=== PATIENT | male | born 1950 | race Caucasian/White ===

== ENCOUNTER 2017-02-10 13:10 | Observation (INO) | payer OTHER, BC ==
[2017-02-10] MEDS ORDERED: METOCLOPRAMIDE 10 MG/2 ML VIAL IVP ONE (13:49)
[2017-02-10] MEDS ORDERED: DIAZEPAM 10 MG/2 ML SYR IVP ONE (13:50)
--- NOTE | 2017-02-10 13:53 | EDPHY ---
H & P Stated Complaint: migraine Time Seen by Provider: 02/10/17 13:40 HPI/ROS: CHIEF COMPLAINT: Headache HISTORY OF PRESENT ILLNESS: The patient is a 67-year-old man with a history of migraines who over the last 2 weeks has had migraines daily and more severe than usual. He was admitted to [facility] 2 weeks ago and had a negative CT scan. They felt that his hand migraines were due to rebound from the Imitrex and caffeine. He was counseled to get off these medications. He tried to stop using them yesterday. Today he woke up with the worst headache he has ever had at 5:00 a.m.. He did try taking Vicodin and a dose of Imitrex with no improvement. His called 911. He was given 150 mcg of fentanyl by EMS with minimal improvement. He denies any focal weakness numbness or deficits. No vision changes. He is photophobic. Nausea but no vomiting. No fever. No trauma. No neck pain. REVIEW OF SYSTEMS: Constitutional: denies: chills, fever, recent illness, recent injury EENTM: denies: blurred vision, double vision, nose congestion Respiratory: denies: cough, shortness of breath Cardiac: denies: chest pain, irregular heart rate, lightheadedness, palpitations Gastrointestinal/Abdominal: denies: abdominal pain, diarrhea, nausea, vomiting, blood streaked stools Genitourinary: denies: dysuria, frequency, hematuria, pain Musculoskeletal: denies: joint pain, muscle pain Skin: denies: lesions, rash, jaundice, bruising Neurological: See HPI denies: numbness, paresthesia, tingling, dizziness, weakness Hematologic/Lymphatic: denies: blood clots, easy bleeding, easy bruising Immunologic/allergic: denies: HIV/AIDS, transplant EXAM: GENERAL: Writhing in bed, holding head. Covering eyes.. HEAD: Atraumatic, normocephalic. EYES: Pupils equal round and reactive to light, extraocular movements intact, sclera anicteric, conjunctiva are normal. ENT: TMs normal, nares patent, oropharynx clear without exudates. Moist mucous membranes. NECK: Normal range of motion, supple without lymphadenopathy or JVD. LUNGS: Breath sounds clear to auscultation bilaterally and equal. No wheezes rales or rhonchi. HEART: Regular rate and rhythm without murmurs, rubs or gallops. ABDOMEN: Soft, nontender, normoactive bowel sounds. No guarding, no rebound. No masses appreciated. BACK: No CVA tenderness, no spinal tenderness, step-offs or deformities EXTREMITIES: Normal range of motion, no pitting or edema. No clubbing or cyanosis. NEUROLOGICAL: Cranial nerves II through XII grossly intact. Normal speech, normal gait. 5/5 strength, normal movement in all extremities, normal sensation PSYCH: Normal mood, normal affect. SKIN: Warm, dry, normal turgor, no visible rashes or lesions. Source: Patient Exam Limitations: No limitations - Personal History Current Tetanus Diphtheria and Acellular Pertussis (TDAP): Yes - Medical/Surgical History Hx Asthma: No Hx Chronic Respiratory Disease: No Hx Diabetes: No Hx Cardiac Disease: No Hx Renal Disease: No Hx Cirrhosis: No Hx Alcoholism: No Hx HIV/AIDS: No Hx Splenectomy or Spleen Trauma: No Other PMH: migraine - Family History Significant Family History: No pertinent family hx - Social History Smoking Status: Never smoked Alcohol Use: Sober Drug Use: None Constitutional: Initial Vital Signs Temperature (C) 36.9 C 02/10/17 13:20 Heart Rate 77 02/10/17 13:20 Respiratory Rate 16 02/10/17 13:20 Blood Pressure 145/74 H 02/10/17 13:20 O2 Sat (%) 97 02/10/17 13:20 O2 Delivery Mode Nasal Cannula O2 (L/minute) 4 Allergies/Adverse Reactions: No Known Drug Allergies Allergy (Verified 02/10/17 16:21) Home Medications: Medication Instructions Recorded Diltiazem HCl [Cartia Xt] 120 mg PO DAILY 02/10/17 Gabapentin [Neurontin 300 MG (*)] 600 mg PO BID 02/10/17 Hydrochlorothiazide [HCTZ (*)] 25 mg PO DAILY 02/10/17 Hydrocodone/APAP 5/325 [[place] 1 - 2 tab PO Q4H 02/10/17 5/325 (*)] Naproxen Sodium [Aleve 220 MG (*)] 220 mg PO BID 02/10/17 Sumatriptan Succinate [Imitrex] 100 mg PO AD 02/10/17 amLODIPine BESYLATE [Norvasc 2.5 2.5 mg PO DAILY 02/10/17 mg (*)] traMADol [Ultram 50 mg (*)] 50 - 100 mg PO Q4 PRN 02/10/17 Medical Decision Making - Diagnostics Imaging Results: Imaging Impressions Brain MRI 02/10/17 13:48 Impression: 1. Mild age-related cerebral atrophy. 2. A few nonspecific hyperintense T2/FLAIR signal abnormalities in the white matter of frontal lobes. Differential diagnosis includes microvascular ischemic disease, post-infectious/post-inflammatory sequela, atypical demyelinating disease, or migraine-related sequela. 3. No acute infarct, hemorrhage, hydrocephalus, mass effect, or herniation. If symptoms worsen, additional imaging may be necessary. Findings discussed with Deshawn Fish M.D. at 15:41 hour, 02/10/2017. Head MRA 02/10/17 13:48 Impression: Normal MRA of the teller of [place] as detailed above. ED Course/Re-evaluation: 2:30 p.m. the patient is feeling significantly better but is anxious about MRI. He still has a headache. I will treat him with Haldol. 4:15 p.m. the patient states that he slept little bowel but now the headache has returned. His family is very concerned. They are relieved about the MRI results but states that they cannot handle at home because of his persistent migraine and that it is changed dramatically over the last 2 weeks. Mom and daughter her requesting admission for neurology consult and further workup. I discussed the case with Dr. Gandhi who will admit. I will consult Neurology. Family is primarily hoping to have a Neurology consult during admission. 4:30 p.m. I discussed the case with Dr. Mack who will consult during the admission. Differential Diagnosis: Partial list of the Differential diagnosis considered include but were not limited to; intractable migraine, tumor, aneurysm, dissection and although unlikely based on the history and physical exam, I also considered seizure, trauma, infection. I discussed these differential diagnoses and the plan with the patient as well as the usual and expected course. The patient understands that the diagnosis is provisional and that in medicine we are not always correct and that further workup is often warranted. Usual and customary warnings were given. All of the patient's questions were answered. The patient was instructed to return to the emergency department should the symptoms at all worsen or return, otherwise to followup with the physician as we discussed. - Data Points Medications Given: Discontinued Medications Dexamethasone (Decadron Injection) 8 mg IVP EDNOW ONE Stop: 02/10/17 16:13 Last Admin: 02/10/17 16:29 Dose: 8 mg Diazepam (Valium Injection) 5 mg IVP EDNOW ONE Stop: 02/10/17 13:51 Last Admin: 02/10/17 13:55 Dose: 5 mg Diphenhydramine HCl (Benadryl Injection) 25 mg IVP EDNOW ONE Stop: 02/10/17 13:50 Last Admin: 02/10/17 13:55 Dose: 25 mg Haloperidol Lactate (Haldol Injection) 5 mg IVP EDNOW ONE Stop: 02/10/17 14:30 Last Admin: 02/10/17 14:35 Dose: 5 mg Hydromorphone HCl (Dilaudid) 1 mg IVP EDNOW ONE Stop: 02/10/17 16:14 Last Admin: 02/10/17 16:28 Dose: 1 mg Ketorolac Tromethamine (Toradol) 15 mg IVP/IM EDNOW ONE Stop: 02/10/17 16:13 Last Admin: 02/10/17 16:29 Dose: 15 mg Lorazepam (Ativan Injection) 1 mg IVP EDNOW ONE Stop: 02/10/17 14:45 Last Admin: 02/10/17 14:50 Dose: 1 mg Metoclopramide HCl (Reglan Injection) 10 mg IVP EDNOW ONE Stop: 02/10/17 13:50 Last Admin: 02/10/17 13:55 Dose: 10 mg Departure - Departure Disposition: [facility] Acute Clinical Impression: Intractable migraine Qualifiers: Migraine type: unspecified Status migrainosus presence: with status migrainosus Qualified Code(s): G43.911 - Migraine, unspecified, intractable, with status migrainosus Condition: Fair
[2017-02-10] MEDS ORDERED: HALOPERIDOL LACT 5 MG/ML INJ IVP ONE (14:29)
[2017-02-10] MEDS ORDERED: LORazepam 2 MG/ML INJ IVP ONE (14:44)
[2017-02-10] MEDS ORDERED: KETOROLAC 15 MG/1 ML SDV IVP/IM ONE (16:12)
[2017-02-10] MEDS ORDERED: DEXAMETHASONE 4 MG/ML VIAL IVP ONE (16:12)
[2017-02-10] MEDS ORDERED: HYDROmorphONE/DILAUDID 1 MG/ML INJ IVP ONE (16:13)
[2017-02-10] MEDS ORDERED: LORazepam 2 MG/ML INJ IVP PRN (16:28)
[2017-02-10] MEDS ORDERED: ONDANSETRON DISINTEGRATING 4 MG TAB PO PRN (16:28)
[2017-02-10] MEDS ORDERED: LORazepam 0.5 MG TAB PO PRN (16:28)
[2017-02-10] MEDS ORDERED: ONDANSETRON 4 MG/2 ML VIAL IVP PRN (16:28)
[2017-02-10] MEDS ORDERED: oxyCODONE IR 5 MG TAB PO PRN (16:28)
[2017-02-10] MEDS ORDERED: ACETAMINOPHEN 325 MG TAB PO PRN (16:28)
[2017-02-10] MEDS ORDERED: SUMAtriptan 6 MG/0.5 ML VIAL SC PRN (16:31)
[2017-02-10 17:49] LABS: % IMMATURE GRANULYOCYTES 0.5 % (0.0-1.1); ABSOLUTE IMMATURE GRANULOCYTES 0.04 10^3/uL (0.00-0.10); ADD DIFF? NO; ADD MORPH? NO; ADD SCAN? NO; ATYPICAL LYMPHOCYTE FLAG 0 (0-99); FRAGMENT RBC FLAG 0 (0-99); HEMATOCRIT 39.9 % (40.0-51.0); HEMOGLOBIN 13.8 g/dL (13.7-17.5); LEFT SHIFT FLG 0 (0-99); LIPEMIA HEMOLYSIS FLAG 90 (0-99); MEAN CELL HEMOGLOBIN 31.6 pg (27.9-34.1); MEAN CELL HEMOGLOBIN CONCENTR. 34.6 g/dL (32.4-36.7); MEAN CELL VOLUME 91.3 fL (81.5-99.8); MEAN PLATELET VOLUME 10.8 fL (8.7-11.7); PLATELET CLUMPS FLAG 10 (0-99); PLATELET COUNT 104 10^3/uL (150-400); RED BLOOD CELL COUNT 4.37 10^6/uL (4.40-6.38); RED CELL DISTRIBUTION WIDTH 14.1 % (11.5-15.2)
--- NOTE | 2017-02-10 17:53 | PDGENHP ---
History and Physical - Chief Complaint REYES - History of Present Illness 67 yo male with hx of migraines, p/w acute migraine. Has been having migraines intermittently for the last 2 weeks. Was seen by a PCP in [place] who though it was likely due to rebound REYES's and modified meds. Modification of meds has not really helped. BP was also noted to be elevated and BP meds were added. He has a long hx of HTN. No neuro deficits. IN the ED he was given a REYES cocktail with resolution of REYES. He is being admitted under observation to obtain Neuro consult. He still had a REYES when the decision was made. He does not have any photophobia. He had some nausea earlier but none currently. PMHx: migraines, HTN Soc: no T/E/I FmHx: NC History Information - Allergies/Home Medication List Allergies/Adverse Reactions: No Known Drug Allergies Allergy (Verified 02/10/17 16:21) Home Medications: Diltiazem HCl [Cartia Xt] 120 mg PO DAILY 02/10/17 [Last Taken 02/10/17] Gabapentin [Neurontin 300 MG (*)] 600 mg PO BID 02/10/17 [Last Taken 02/10/17 09 :00] Hydrochlorothiazide [HCTZ (*)] 25 mg PO DAILY 02/10/17 [Last Taken 02/10/17] Hydrocodone/APAP 5/325 [[place] 5/325 (*)] 1 - 2 tab PO Q4H 02/10/17 [Last Taken 02/10/17 10:30] Naproxen Sodium [Aleve 220 MG (*)] 220 mg PO BID 02/10/17 [Last Taken 02/10/17 09:00] Sumatriptan Succinate [Imitrex] 100 mg PO AD 02/10/17 [Last Taken 02/10/17 11:30 ] amLODIPine BESYLATE [Norvasc 2.5 mg (*)] 2.5 mg PO DAILY 02/10/17 [Last Taken 09:30] traMADol [Ultram 50 mg (*)] 50 - 100 mg PO Q4 PRN 02/10/17 [Last Taken 02/10/17 10:00] I have personally reviewed and updated: family history, medical history, social history - Social History Smoking Status: Never smoked Alcohol Use: Sober Drug Use: None Review of Systems Review of Systems: ROS: 10pt was reviewed & negative except for what was stated in HPI & below Physical Exam Physical Exam: Temp Pulse Resp BP Pulse Ox 36.8 C 80 14 132/85 H 100 02/10/17 17:36 02/10/17 17:36 02/10/17 17:36 02/10/17 17:36 02/10/17 17:36 O2 (L/minute) 4 Constitutional: no apparent distress Eyes: PERRL, EOMI Ears, Nose, Mouth, Throat: moist mucous membranes, hearing normal, ears appear normal Cardiovascular: regular rate and rhythym, no murmur, rub, or gallop Respiratory: no respiratory distress, no rales or rhonchi, clear to auscultation , reduced air movement Gastrointestinal: normoactive bowel sounds, soft, non-tender abdomen Genitourinary: no bladder fullness Skin: warm, normal color Musculoskeletal: full muscle strength, No generalized weakness Neurologic: AAOx3, sensation intact bilaterally Psychiatric: interacting appropriately, not anxious, not encephalopathic, thought process linear, No encephalopathic Lab Data & Imaging Review 02/10/17 17:35 02/10/17 17:35 WBC 8.58 10^3/uL (3.80-9.50) 02/10/17 17:35 RBC 4.37 10^6/uL (4.40-6.38) L 02/10/17 17:35 Hgb 13.8 g/dL (13.7-17.5) 02/10/17 17:35 Hct 39.9 % (40.0-51.0) L 02/10/17 17:35 MCV 91.3 fL (81.5-99.8) 02/10/17 17:35 MCH 31.6 pg (27.9-34.1) 02/10/17 17:35 MCHC 34.6 g/dL (32.4-36.7) 02/10/17 17:35 RDW 14.1 % (11.5-15.2) 02/10/17 17:35 Plt Count 104 10^3/uL (150-400) L 02/10/17 17:35 MPV 10.8 fL (8.7-11.7) 02/10/17 17:35 Neut % (Auto) 89.1 % (39.3-74.2) H 02/10/17 17:35 Lymph % (Auto) 5.7 % (15.0-45.0) L 02/10/17 17:35 Garden % (Auto) 4.0 % (4.5-13.0) L 02/10/17 17:35 Eos % (Auto) 0.5 % (0.6-7.6) L 02/10/17 17:35 Baso % (Auto) 0.2 % (0.3-1.7) L 02/10/17 17:35 Nucleat RBC Rel Count 0.0 % (0.0-0.2) 02/10/17 17:35 Absolute Neuts (auto) 7.65 10^3/uL (1.70-6.50) H 02/10/17 17:35 Absolute Lymphs (auto) 0.49 10^3/uL (1.00-3.00) L 02/10/17 17:35 Absolute Monos (auto) 0.34 10^3/uL (0.30-0.80) 02/10/17 17:35 Absolute Eos (auto) 0.04 10^3/uL (0.03-0.40) 02/10/17 17:35 Absolute Basos (auto) 0.02 10^3/uL (0.02-0.10) 02/10/17 17:35 Absolute Nucleated RBC 0.00 10^3/uL (0-0.01) 02/10/17 17:35 Immature Gran % 0.5 % (0.0-1.1) 02/10/17 17:35 Immature Gran # 0.04 10^3/uL (0.00-0.10) 02/10/17 17:35 Assessment & Plan Assessment: #Intractable migraine (Acute) #HTN Plan: Admit Observation Migraine has resolved Neuro to see. They were consulted by the [facility]amsi Symptom mgmt SCD's Full code cont home meds as appropriate
[2017-02-10] MEDS ORDERED: MAG HYDROX/AL HYDROX/SIMETH 30 ML UDCUP PO PRN (18:04)
[2017-02-10 18:09] LABS: ANION GAP 7 mEq/L (8-16); CALCIUM 8.1 mg/dL (8.5-10.4); CARBON DIOXIDE 24 mEq/l (22-31); CHLORIDE 102 mEq/L (97-110); CREATININE 0.6 mg/dL (0.7-1.3); GLOMERULAR FILTRATION RATE > 60; GLUCOSE 97 mg/dL (70-100); POTASSIUM 3.7 mEq/L (3.5-5.2); SODIUM 133 mEq/L (134-144)
[2017-02-10] MEDS ORDERED: IPRATROPIUM/ALBUTEROL 3 ML DEYVIAL IH SCH (21:00)
[2017-02-10] MEDS: GABAPENTIN 300 MG CAP PO SCH (21:45)
[2017-02-11 05:07] LABS: % IMMATURE GRANULYOCYTES 0.7 % (0.0-1.1); ABSOLUTE IMMATURE GRANULOCYTES 0.05 10^3/uL (0.00-0.10); ADD DIFF? NO; ADD MORPH? NO; ADD SCAN? NO; ATYPICAL LYMPHOCYTE FLAG 0 (0-99); FRAGMENT RBC FLAG 0 (0-99); HEMATOCRIT 41.4 % (40.0-51.0); LEFT SHIFT FLG 0 (0-99); LIPEMIA HEMOLYSIS FLAG 90 (0-99); MEAN CELL HEMOGLOBIN 30.7 pg (27.9-34.1); MEAN CELL HEMOGLOBIN CONCENTR. 33.8 g/dL (32.4-36.7); MEAN CELL VOLUME 90.8 fL (81.5-99.8); MEAN PLATELET VOLUME 10.3 fL (8.7-11.7); PLATELET CLUMPS FLAG 10 (0-99); PLATELET COUNT 146 10^3/uL (150-400); RED BLOOD CELL COUNT 4.56 10^6/uL (4.40-6.38)
[2017-02-11 05:29] LABS: ANION GAP 6 mEq/L (8-16); CARBON DIOXIDE 25 mEq/l (22-31); CHLORIDE 102 mEq/L (97-110); CREATININE 0.7 mg/dL (0.7-1.3); GLOMERULAR FILTRATION RATE > 60; GLUCOSE 123 mg/dL (70-100); MAGNESIUM 1.9 mg/dL (1.6-2.3); POTASSIUM 4.7 mEq/L (3.5-5.2); SODIUM 133 mEq/L (134-144)
[2017-02-11] MEDS ORDERED: IPRATROPIUM/ALBUTEROL 3 ML DEYVIAL IH PRN (05:45)
[2017-02-11 08:16] VITALS: TEMP 97.9
[2017-02-11] MEDS ORDERED: DILTIAZEM CD 120 MG CAP PO SCH (09:00)
[2017-02-11] MEDS ORDERED: HYDROCHLOROTHIAZIDE 25 MG TAB PO SCH (09:00)
[2017-02-11] MEDS: GABAPENTIN 300 MG CAP PO SCH (09:21)
--- NOTE | 2017-02-11 10:11 | NEUROPROG ---
Assessment: HOSPITAL NEUROLOGY CONSULT REQUESTING: Ross Gandhi MD REASON: headache HPI: 67 year old right-handed man with a history of migraines, HTN, chronic low back pain after lumbar fusion who presented to our ED yesterday via EMS with a headache. Patient has a longstanding history of migraines since childhood. Typical migraines manifest as vertex throbbing with preceding visual aura and nausea, photophobia and phonophobia. They tend to occur once per month, but lately they have been increasing in frequency. He has never seen a neurologist for his headaches, but his PCP back in [place] had been prescribing sumatriptan and hydrocodone. Over the last 2-3 months, his migraines have become more frequent , occurring every 2-3 days as of the last 3-4 weeks. He has been using sumatriptan twice daily on headache days, as well as his hydrocodone. He also had been using Excedrin Migraine for these headaches. He thinks the increasing frequency is triggered by skipping meals with frequent travel. He also notes perhaps a year or so of a different headache semiology he describes as "pillow headaches." He states he wakes with posterior quadrant aching pain on most mornings. He thought this was related to his neck and poorly supportive pillows, so he changed his pillows multiple times without any improvement. His has been noticing increasing intensity and frequency of snoring with sleep, to the point where it occurs in all sleeping positions ( back and side). Headaches generally subside in a few hours. Of new concern is an even newer REYES semiology. He notes 2 weeks ago, just prior to traveling to [place], he was getting severe daily headaches involving the right hemicranial region. It tends to occur at night, sometimes in the surveillance system monitor. He finds laying in bed to be of comfort, as opposed to getting up and walking about the house. He has continued to use sumatriptan, hydrocodone and Excedrin for these headaches, now for the past 2 weeks using these medications daily. Both he and his noted his right eyelid to be drooping with these new headaches. He has experienced some nasal congestion and drainage, but can' t recall any lateralization. He established with a local PCP for evaluation and was sent to [facility] earlier this week for an emergent CT head wo, which was normal. No vascular imaging was done. ESR was drawn and was normal. He returned to his PCP on 02/09 and was told his HAs were related to medication overuse and he was told to stop using sumatriptan and hydrocodone. Yesterday he had another episode of his REYES in the daytime and summoned EMS for transport to our ED. He had an MRI brain wo in the ED which showed nothing acute, but some chronic microvascular ischemic changes in the frontal subcortical white matter. MRA head wo showed patent vessels. He was given several IV migraine abortives, which helped his REYES, but it is still present. He denies any head/neck injury,including chiropractic manipulation or whiplash type movements. No weakness, numbness, speech/language changes, dizziness, gait changes. He does have some vague nack pain with this new headache. ROS: As per the HPI, otherwise a complete 12 point ROS was performed and is negative ALLERGIES AND MEDS: As recorded in the EMR - reviewed and reconciled PFSH: As per the intake H&P by Dr. Gandhi from yesterday EXAM: VS reviewed in EMR GEN: WDWN sitting in NAD, appears comfortable eating breakfast HEENT: NCAT, sclera anicteric, conjunctiva not injected, MMM, oropharynx clear, no scalp tenderness NECK: supple, nontender, no meningismus CV: RRR s1 s2 wo m/r/c/g. Carotid pulses 2+ wo bruit NEURO: MS: awake, alert, oriented to all spheres. Speech nondysarthric. No language disturbance. Follows commands. Attends to both sides. Recent/remote memory grossly intact. Mood euthymic. Good fund of knowledge. CN: pupils 5mm round OS, 3.5mm round OD and both reactive. Fundi with sharp discs. Ptosis OD with 1mm pupillary encroachment. VFF. Primary gaze centered. Full ocular motility. Facial sensation preserved. Face symmetric. Hearing grossly intact to finger rub. Palatoglossal movements intact. Shoulder shrug and head turn strong. MOTOR: normal bulk/tone. No adventitial movements. Full power throughout. SENSORY: intact to all modalities throughout. No extinction. COORD: no ataxia FN/HS. Tico preserved. Romberg neg. REFLEX: plantars down. No clonus. DTRS 2/4. GAIT: rises unassisted. Narrow base. Intact stride length/heel strike/toe lift /arm swing. Turns with 2 steps. Able to tandem without difficulty. DATA REVIEW: Labs reviewed in EMR PERSONALLY INTERPRETED RESULTS AND DATA: MRI brain wo and MRA head wo as per the HPI IMPRESSION AND RECOMMENDATIONS: // RIGHT HEMICRANIAL HEADACHE WITH RIGHT MIOSIS/PTOSIS - RULE OUT CAROTID DISSECTION // HX MIGRAINES // DAILY MORNING HAs - SUSPECT ZAID RELATED VS CERVICOGENIC // MEDICATION OVERUSE Patient with multiple REYES issues presenting with new REYES semiology concerning for right carotid dissection vs. paroxysmal hemicrania. Will get CTA head/neck to eval for carotid dissection. Will render further recommendation pending results and final diagnosis of this new REYES. Regarding his chronic AM HAs, likely ZAID related - he has sleep eval scheduled next week. If this is unyielding, then will need cervical degeneration eval with PCP or PMR/spine. Regarding migraines, likely increasing frequency with medication overuse and skipping meals. Discussed stopping all OTC analgesics and sumatriptan for at least 6 weeks. Also discussed how narcotics should not be used to treat primary REYES disorders, as these lead to pro-nociception/central sensitization and can interfere with triptan effectiveness. His tramadol use for chronic low back pain is likely also contributing. Discussed revisiting with PCP to taper off these medications. Discussed using physical modalities for chronic low back pain, as they are of greater benefit than pharmacotherapy. At most, could consider SNRI for his pain, but would certainly recommend coming off chronic narcotic analgesics for his issues. Will await CTA results. Objective: Vital Signs Temp Pulse Resp BP Pulse Ox 36.6 C 102 H 18 118/76 95 02/11/17 08:14 02/11/17 08:14 02/11/17 08:14 02/11/17 09:20 02/11/17 08:14 Laboratory Results 02/11/17 04:48 02/11/17 04:48 02/10/17 02/11/17 02/12/17 05:59 05:59 05:59 Intake Total 1200 Output Total 400 Balance 800 Allergies/Adverse Reactions: No Known Drug Allergies Allergy (Verified 02/10/17 16:21)
[2017-02-11] MEDS ORDERED: IOPAMIDOL (ISOVUE 370) 100 ML BTL IV ONE (10:26)
--- NOTE | 2017-02-11 11:05 | HOSPPROG ---
Hospitalist Progress Note Assessment/Plan: Patient is a 67-year-old male with a history of migraines, chronic back pain and hypertension who presented the emergency room with a headache. Today is my 1st encounter with the patient. Chart reviewed. Discussed his care with Dr. Mack with neurology. * migraine noted on the right side with right-sided miosis and the ptosis -neurology ordered a CTA to rule out any type of carotid dissection vs paroxysmal esther crani *right sided carotid dissection -asa 325 mg daily * history migraines -patient has chronic counter stacker headaches could be related to obstructive sleep apnea -patient has an appointment set up for next week for evaluation -if this is negative, neurology is recommending further evaluation in regards to cervical degeneration * chronic back pain -further f/u with his PCP *tachycardia -noted on today's exam *plan reviewed his care with the radiologist. The CTA is somewhat hard to differentiate but it looks like he has a short section of dissection noted on the right side with possible intramural thrombus. He has thickening of the wall. Discussed with Dr Mack and will have him on aspirin 325 mg daily x [address] of neck in 3 months. Subjective: Lavelle has no c/opain today. Objective: Vital Signs Temp Pulse Resp BP Pulse Ox 36.6 C 102 H 18 118/76 95 02/11/17 08:14 02/11/17 08:14 02/11/17 08:14 02/11/17 09:20 02/11/17 08:14 Laboratory Results 02/11/17 04:48 02/11/17 04:48 02/10/17 02/11/17 02/12/17 05:59 05:59 05:59 Intake Total 1200 Output Total 400 Balance 800 - Physical Exam Constitutional: no apparent distress, appears nourished, not in pain Eyes: PERRL Ears, Nose, Mouth, Throat: hearing normal Cardiovascular: regular rate and rhythym, tachycardia Respiratory: no respiratory distress Skin: warm, normal color Musculoskeletal: full muscle strength Neurologic: AAOx3 Psychiatric: interacting appropriately, not anxious ICD10 Worksheet Patient Problems: Problems Problem Status Onset Intractable migraine Acute
[2017-02-11 11:46] VITALS: BP 121/95; PULSE 109; RESP 20; O2SAT 96
[2017-02-11] MEDS ORDERED: ASPIRIN 325 MG TAB PO SCH (12:15)
--- NOTE | 2017-02-11 15:10 | ASDISCHSUM ---
Discharge Information Plan Status:Home with No Needs Medically Cleared to Leave:02/11/2017 Discharge Date:02/11/2017 02:30 PM CM D/C Disposition:Home, Routine, Self-Care ADT D/C Disposition:Home, Routine, Self-Care Projected Discharge Date:02/11/2017 02:30 PM Transportation at D/C:Family Discharge Delay Reason: Follow-Up Date:02/11/2017 02:30 PM Discharge Slot: Final Diagnosis: Placement Information Patient Contact Information Contact Name:ZAC Relationship: Address:[address] Work Phone: [facility]:RACHEL Alternate Phone: [facility]/Zip Code:[place] [address] Email: Financial Information Financial Class: Primary Plan Desc:MEDICARE OUTPATIENT Primary Plan Number:[id number] Secondary Plan Desc: OUT OF STATE [facility] Secondary Plan Number:[id number] Assessment Information Intervention Information Intervention Type:*MCALLISTER-Signed Date of Service:02/11/2017 09:19 AM Patient Type:Observation Staff Member:Cynthia Su Hours: Discipline: Severity: Comment:
--- NOTE | 2017-02-11 18:43 | GDS ---
[f rep st] DISCHARGE SUMMARY DISCHARGE DIAGNOSES: 1. Carotid dissection. 2. Migraine on the right side with right-sided myosis and ptosis. 3. History of migraines. 4. Chronic back pain. 5. Tachycardia. CONSULTATIONS: Dr. Deshawn Mack. Briefly, patient is a very nice 67-year-old gentleman who has a history of migraines. He presented to the emergency room with an acute migraine. He was seen by his primary care provider in [place], who thought he had rebound headaches and added Aleve to his home regimen. This had not helped. His primary care provider sent him to the ER to get further evaluation. A brain MRI and head MRA were both performed. It showed mild age-related cerebral atrophy. He had a few nonspecific hyperintensive T2/FLAIR signal abnormalities. He did not have an acute infarct, hemorrhage, hydrocephalus, mass effect, or herniation. The head MRA showed normal [place]. Head CTA showed narrowing of the distal right internal carotid in the area of enlargement with mural thrombus with narrowing of the vessel and irregularity which could be related to dissection with mural thrombus or atherosclerosis with positive remodeling. He has a short segment of nonocclusive dissection flap in the distal left internal carotid artery versus penetrating atherosclerotic ulcer. I reviewed these findings with the radiologist and with the neurologist. The recommendation is for him to be on aspirin therapy for the next 3 months and he will need re-imaging for follow up. HOSPITAL COURSE: 1. Carotid dissection. He will be on aspirin therapy. Recommending that he do no heavy lifting workouts, no neck or massage therapy, and no back adjustments. He will follow up with Dr. Mack in the outpatient setting. 2. Migraine. This was noted on the right side with right-sided myosis and ptosis. A CTA confirmed that he had a carotid dissection. There was initial concern that he may have paroxysmal hemicrania. 3. History of migraines. He has chronic research affiliate headaches. This could be related to obstructive sleep apnea. He has an appointment next week for further evaluation. If this is negative, Neurology is recommending further evaluation in regard to his cervical degeneration. 4. Chronic back pain. Further followup with his primary care provider. 5. Tachycardia. His heart rate is in the low 100s. His daughter said this has been going on. Further evaluation by his PCP. DISCHARGE CONDITION: Stable. Blood pressure is 118/76, O2 sats on room air 95% , respiratory rate is 18, pulse is 102, temperature is 36.6 Celsius. MEDICATIONS AT DISCHARGE: Please see the EMR. DISCHARGE INSTRUCTIONS: 1. Follow up with Dr. Mack. 2. To talk with Dr. Mack if he can take the Aleve while taking the aspirin due to the carotid dissection and plaque formation. 3. If his headaches are recurrent, he can discuss with the neurologist about increasing his diltiazem dose. /[id number]/MODL MTDD
== END 2017-02-11 14:30 | disposition home or self-care (01) ==
LOC: F1N 17:57
PROVIDERS: ADMIT Family Medicine; ATTEND Student in an Organized Health Care Education/Training Program
DX: I77.71 Dissection of carotid artery (principal); G43.911 Migraine, unspecified, intractable, with status migrainosus; I65.21 Occlusion and stenosis of right carotid artery; H57.03 Miosis; H02.401 Unspecified ptosis of right eyelid; G89.29 Other chronic pain; M54.9 Dorsalgia, unspecified; R00.0 Tachycardia, unspecified; I10 Essential (primary) hypertension; Z98.1 Arthrodesis status
CPT/HCPCS: 70496; 70498; 70544; 70551; G0378; J1100; J1170; J1200; J1885; J2060; J2765; J3030; Q9967; 96374

== ENCOUNTER → 2017-05-28 | Outpatient (CLI) | payer OTHER, BC ==
[~2017-05-28] MED LIST: GADOBUTROL 10 ML VIAL IVP ONE
== END ==
LOC: FIMAGING 08:00
PROVIDERS: ATTEND Psychiatry & Neurology Neurology
DX: Z98.890 Other specified postprocedural states (principal); I77.71 Dissection of carotid artery
CPT/HCPCS: 70548; A9585

== ENCOUNTER → 2017-08-18 | Outpatient (CLI) | payer OTHER, BC ==
[~2017-08-18] MED LIST changes: -GADOBUTROL 10 ML VIAL IVP ONE; +IOPAMIDOL (ISOVUE 370) 100 ML BTL IV ONE
== END ==
LOC: FIMAGING 10:02
PROVIDERS: ATTEND Psychiatry & Neurology Neurology
DX: I77.71 Dissection of carotid artery (principal)
CPT/HCPCS: 70496; 70498; Q9967

== ENCOUNTER → 2018-02-07 | Outpatient (CLI) | payer OTHER, BC | LOC: FIMAGING 09:51 | PROVIDERS: ATTEND Psychiatry & Neurology Neurology | DX: I65.23 Occlusion and stenosis of bilateral carotid arteries (principal) | CPT/HCPCS: 70496; 70498; Q9967; 82565-PO ==